=== PATIENT | female | born 1990 | race Two or more races ===

== ENCOUNTER 2020-04-20 05:46 | Inpatient (IN) | payer OTHER ==
[~2020-04-20] VITALS: Ht 160 cm; Wt 88.2 kg
[2020-04-20] MEDS ORDERED: SODIUM CHLORIDE 0.9% 500 ML IVB ONE (06:43)
[2020-04-20] MEDS ORDERED: SODIUM CHLORIDE 0.9% 1,000 ML IV ONE (06:43)
[2020-04-20] MEDS ORDERED: METOCLOPRAMIDE HCL 5MG/ml INJ 2ml VIAL IV ONE (06:45)
[2020-04-20] MEDS ORDERED: KETOROLAC TROMETH 30 MG/ML 1ML VIAL IV ONE (06:45)
[2020-04-20 06:57] LABS: Basophils # (auto) 0.1 10 ^3/uL (0-0.2); Basophils % (auto) 0.8 % (0.0-2.0); Eosinophils # (auto) 0.3 10 ^3/uL (0-0.8); Eosinophils % (auto) 3.4 % (0.0-7.0); Hematocrit 41.5 % (36.0-46.0); Hemoglobin 13.9 g/dL (12.2-16.2); Lymphocytes # (auto) 1.9 10 ^3/uL (0.4-5.4); Mean Corpuscular Hgb Conc. 33.5 g/dL (32.0-36.0); Mean Corpuscular Volume 92.6 fL (80.0-100.0); Monocytes # (auto) 0.4 10 ^3/uL (0-1.3); Monocytes % (auto) 4.1 % (0.0-12.0); Neutrophils # (auto) 7.4 10 ^3/uL (1.6-8.6); Neutrophils % (auto) 72.7 % (37.0-80.0); Platelet Count (auto) 306 10^3/uL (140-450); Red Blood Cells 4.48 10^6/uL (4.0-5.20); Red Cell Distribution Width 13.8 % (11.8-14.3); White Blood Cell 10.2 10^3/uL (4.4-10.8)
[2020-04-20 07:20] LABS: Albumin 3.9 g/dL (3.4-5.0); Calcium 8.7 mg/dL (8.5-10.1); Potassium 3.3 mmol/L (3.5-5.1)
[2020-04-20 07:26] LABS: BUN/Creatinine Ratio 9.6; Bilirubin, Total 0.5 mg/dL (0.2-1.0)
[2020-04-20 07:46] LABS: Beta HCG, Quantitative < 1 mlU/mL (1-3); Thyroid Stimulating Hormone 1.16 uIU/mL (0.358-3.74)
[2020-04-20 09:15] LABS: Urine Bacteria NONE SEEN /hpf (None Seen); Urine Blood Negative /uL (Negative); Urine Specific Gravity 1.004 (1.001-1.035); Urine WBC 3 /hpf (0 - 5)
[2020-04-20] MEDS ORDERED: HYDROcodone-ACET 5/325MG TAB PO PRN (11:00)
[2020-04-20] MEDS ORDERED: SODIUM CHLORIDE 0.9% 1,000 ML IV SCH (11:00)
[2020-04-20] MEDS ORDERED: LORazepam 0.5 MG TAB PO PRN (11:00)
[2020-04-20] MEDS ORDERED: ACETAMINOPHEN 325 MG TAB PO PRN (11:00)
[2020-04-20] MEDS ORDERED: ALUM & MAG HYDROX-SIMETH LIQ(MAALOX) 30 ML PO PRN (11:00)
[2020-04-20] MEDS ORDERED: DOCUSATE SOD 100 MG CAP PO PRN (11:00)
[2020-04-20] MEDS ORDERED: cefTRIAXone 1GM/50ML D5W 50 ML IV ONE ×2 (11:00→11:15)
[2020-04-20] MEDS ORDERED: POTASSIUM EFFERVESENT TAB 25 MEQ PO ONE (11:00)
[2020-04-20] MEDS ORDERED: ONDANSETRON HCL 4 MG/2 ML VIAL IV PRN (11:00)
[2020-04-20] MEDS ORDERED: NITROGLYCERIN 0.4 MG SL TAB SL PRN (11:00)
[2020-04-20] MEDS ORDERED: MORPHINE SULF INJ 2 MG/ML SYRINGE 1ML IV PRN ×2 (11:00)
[2020-04-20] MEDS ORDERED: metroNIDAZOLE 500MG/100ML 100 ML IV ONE (11:15)
[2020-04-20] MEDS ORDERED: LEVOTHYROXINE SODIUM 25 MCG TAB PO ONE ×2 (11:15→11:30)
[2020-04-20] MEDS ORDERED: POTASSIUM CHL 20 Meq TABLET PO ONE (11:15)
[2020-04-20] MEDS ORDERED: POTASSIUM CHL 20MEQ/100ML 100 ML IV ONE (11:15)
[2020-04-20] MEDS ORDERED: LEVO137T3 PO (11:17)
[2020-04-20] MEDS ORDERED: ACET-1304 PO (11:17)
[2020-04-20] MEDS ORDERED: LEVOTHYROXINE SODIUM 112 MCG TAB PO ONE (11:30)
[2020-04-20 11:40] LABS: Cholesterol 161 mg/dL (< 200); HDL Cholesterol 57 mg/dL (40-59); LDL Cholesterol 99 mg/dL (< 100); Triglycerides 102 mg/dL (< 150)
[2020-04-20 12:47] LABS: INR 0.96 (0.9-1.15); Partial Thromboplastin Time 29.7 sec (23.0-31.2)
[2020-04-20] MEDS ORDERED: metroNIDAZOLE 500MG/100ML 100 ML IV SCH (14:00)
--- NOTE | 2020-04-20 15:30 | NUR ---
MS admit from ER KALIA CASTELLANOS admitted to tele/MS after SBAR received. Patient oriented to Deyanira morse RN, unit, room, bed, and unit policies regarding patient care and visiting hours. Patient weighed by bedscale and encouraged to call if they need something. All questions and concerns addressed, patient verbalized understanding.
--- NOTE | 2020-04-20 16:05 | NUR ---
1600 04/20/20 - Faxed to [facility] at [phone] face sheet, H/P, patient for transfer to network facility ([facility]). Contacted by [facility] transfer center coordinator Ade, who confirmed receipt of all faxed clinicals. Pending review, bed availability and COVID results. Patient placed on [facility] "will call list" Authorization for [facility] transport is [id number].
--- NOTE | 2020-04-20 16:06 | NUR ---
per case management, Jamila, patient is pending transfer to [place]. [place] is requiring Covid-19 test before transfer.
[2020-04-20 17:59] LABS: Alcohol, Urine < 3.0 mg/dL (0-10); Amphetamine Screen, Urine NEGATIVE (NEGATIVE); Barbiturate Scree,Urine NEGATIVE (NEGATIVE); Benzodiazephine Screen, Urine NEGATIVE (NEGATIVE); Cocaine Screen, Urine NEGATIVE (NEGATIVE); Opiate Scree,Urine NEGATIVE (NEGATIVE); Phencyclidine Screen, Urine NEGATIVE (NEGATIVE)
[2020-04-20 18:08] LABS: Cannabinoid Screen, Urine POSITIVE (NEGATIVE)
--- NOTE | 2020-04-20 19:40 | NUR ---
Received call from Cb Upton at the [facility] transfer center to inform us of bed availability. He stated the patient will go to [address], Room 9203. Phone number for report - [phone]. Call back number for transfer center - [phone].
--- NOTE | 2020-04-20 21:37 | NUR ---
Called [facility] to activate the will call transport. Given pickup ETA of 90-120 minutes.
--- NOTE | 2020-04-20 21:37 | NUR ---
Call in report to Carrie at [place].
[2020-04-20 22:00] VITALS: BP 113/64
--- NOTE | 2020-04-20 23:05 | NUR ---
Patient picked up by [facility] for transport to [place]. DC/Tx papers signed by patient. Teaching instructions given to patient. All belongings gathered and sent with [facility]. Patient ambulated to [facility] and was wheeled out by [facility] [employer] edge grinder. No S/S of any distress at time of departure.
[2020-04-21] MEDS ORDERED: LEVOTHYROXINE SODIUM 25 MCG TAB PO SCH (07:00)
[2020-04-21] MEDS ORDERED: LEVOTHYROXINE SODIUM 112 MCG TAB PO SCH (07:00)
[2020-04-21] MEDS ORDERED: cefTRIAXone 1GM/50ML D5W 50 ML IV SCH (09:00)
[2020-04-21] MEDS ORDERED: POTASSIUM CHL 20 Meq TABLET PO SCH (10:00)
== END 2020-04-20 23:05 | disposition short-term general hospital (02) | DRG 446 ==
LOC: ER 05:46 → OVERFLOW 05:47 → WEST WING 15:36
PROVIDERS: ADMIT Hospitalist; ATTEND Hospitalist
DX: K80.00 Calculus of gallbladder with acute cholecystitis without obstruction (principal); E03.9 Hypothyroidism, unspecified; F17.210 Nicotine dependence, cigarettes, uncomplicated; E78.5 Hyperlipidemia, unspecified; E66.01 Morbid (severe) obesity due to excess calories; R00.1 Bradycardia, unspecified; Z68.34 Body mass index [BMI] 34.0-34.9, adult; Z79.899 Other long term (current) drug therapy
CPT/HCPCS: 36415; 76705; 80053; 80061; 80307; 81001; 83036; 83690; 83735; 84443; 84484; 84702; 85025; 85610; 85730; 86850; 86900; 86901; 87040; 87086; 93005; G0378; J0696; J1885; J3480; J3490